=== PATIENT | male | born 1935 | race Caucasian/White ===

== ENCOUNTER 2025-02-09 06:00 | Inpatient (IN) | payer OTHER ==
[2025-02-09] MEDS ORDERED: NOREPINEPHRINE BITARTRATE 4 MG/4 ML ML IV ONE ×2 (06:25→09:36)
[2025-02-09] MEDS: NOREPINEPHRINE BITARTRATE 4,000 MCG in DEXTROSE 5%-WATER - 496 ML IV SCH (06:30)
[2025-02-09] MEDS: AMIODARONE IN DEXTROSE,ISO-OSM 360 MG/200 ML BAG IV SCH ×2 (06:34→16:37)
[2025-02-09 06:40] LABS: MCHC 31.4 g/dl (32.3-36.5); MEAN CELL VOLUME 92.5 fl (79.0-92.2); MEAN PLT VOLUME 11.4 fl (9.4-12.4); RDW 14.9 % (12.6-16.6)
[2025-02-09] MEDS ORDERED: AMIODARONE IN DEXTROSE,ISO-OSM 360 MG/200 ML BAG ONE (06:42)
[2025-02-09 06:47] LABS: BG HCT 40.0 % (35.4-49); VENOUS BASE EXCESS -5.3 mmol/L (-2-2); VENOUS O2 SATURATION 94.5 % (70-80); VENOUS PCO2 69.5 mmHg (38-52)
[2025-02-09 06:59] LABS: VENOUS PH 7.167 (7.310-7.410)
[2025-02-09 07:00] LABS: CO2 24 mmol/L (21-32); GLUCOSE,RANDOM 287 mg/dL (74-106)
[2025-02-09 07:05] LABS: SGOT/AST 64 U/L (15-37); SGPT/ALT 30 U/L (13-61)
[2025-02-09 07:06] LABS: CREATININE 3.3 mg/dL (0.55-1.3)
[2025-02-09 07:07] LABS: TOT PROT 7.0 g/dl (6.4-8.2)
[2025-02-09 07:08] LABS: ALK PHOS 98 U/L (45-117)
[2025-02-09 07:17] LABS: LACTIC ACID 10.6 mmol/L (0.4-2.0)
[2025-02-09 07:37] LABS: INR 1.2 (0.83-1.09); PROTHROMBIN TIME (PATIENT) 13.2 SEC (9.7-13.0)
[2025-02-09 07:39] LABS: ACTIVATED PTT 29.7 SECONDS (25.2-36.5)
[2025-02-09 08:40] VITALS: BMI 27.9
[2025-02-09] MEDS ORDERED: MIDAZOLAM IN 0.9 % SOD.CHLORID 1 MG/1 ML PLAST..BAG ONE (09:41)
[2025-02-09] MEDS ORDERED: levETIRAcetam 500 MG/5 ML INJECTION VIAL IVPB ONE (09:42)
[2025-02-09] MEDS: MIDAZOLAM IN 0.9 % SOD.CHLORID 100 MG/100 ML PLAST..BAG IVPB SCH (10:06)
[2025-02-09] MEDS: NOREPINEPHRINE 0.9 % NACL 8 MG/250 ML BAG IVPB SCH (10:07)
[2025-02-09] MEDS: levETIRAcetam 500 MG/5 ML INJECTION VIAL IVPB ONE (10:07)
[2025-02-09] MEDS: PANTOPRAZOLE SODIUM 40 MG VIAL IVPUSH SCH (10:20)
[2025-02-09] MEDS: HEPARIN NA (PORCINE) 5,000 UNITS/ML 1ML VIAL SQ SCH (10:36)
[2025-02-09 11:36] LABS: MCHC 31.9 g/dl (32.3-36.5); MEAN CELL VOLUME 90.8 fl (79.0-92.2); MEAN PLT VOLUME 11.4 fl (9.4-12.4); RDW 14.8 % (12.6-16.6)
[2025-02-09] MEDS: FENTANYL NS IVPB 500 MCG/100 ML BAG IVPB SCH (11:49)
[2025-02-09 12:24] LABS: LACTIC ACID 7.2 mmol/L (0.4-2.0)
[2025-02-09 12:54] LABS: ARTERIAL BLD GAS O2 SATURATION 99.5 % (95-98); ARTERIAL BLOOD GAS BASE EXCESS -0.2 mmol/L (-2-2); ARTERIAL BLOOD GAS PCO2 37.00 mmHg (35-45); ARTERIAL BLOOD GAS PO2 214.7 mmHg (80-100); BG HCT 37.0 % (35.4-49)
[2025-02-09 12:59] LABS: ALLENS TEST POSITIVE
[2025-02-09 13:00] LABS: VENT MODE A/C; VENT RATE 16
[2025-02-09 13:14] LABS: CO2 28.0 mmol/L (21-32); GLUCOSE,RANDOM 387.0 mg/dL (74-106)
[2025-02-09 13:17] LABS: CREATININE 3.4 mg/dL (0.55-1.3)
[2025-02-09] MEDS: PIPERACILLIN/TAZOB 2.25 GM 2.25 GM in DEXTROSE 5%-WATER - 50 ML IVPB SCH ×2 (14:31→21:00)
[2025-02-09] MEDS: INSULIN ASPART SLIDING SCALE (NOVOLOG) 1 VIAL SQ SCH (15:12)
[2025-02-09 17:03] LABS: CO2 27.0 mmol/L (21-32); GLUCOSE,RANDOM 346.0 mg/dL (74-106)
[2025-02-09 17:07] LABS: CREATININE 4.0 mg/dL (0.55-1.3)
[2025-02-09] MEDS: KCL 20 MEQ PREMIX BAG 20 MEQ/100 ML INFUS.BAG IVPB SCH (17:11)
[2025-02-09 17:17] LABS: LACTIC ACID 5.1 mmol/L (0.4-2.0)
[2025-02-09 17:18] LABS: MCHC 32.5 g/dl (32.3-36.5); MEAN CELL VOLUME 89.4 fl (79.0-92.2); MEAN PLT VOLUME 11.6 fl (9.4-12.4); RDW 14.8 % (12.6-16.6)
[2025-02-09] MEDS: PROPOFOL 1,000,000 MCG/100 ML VIAL IVPB SCH (21:45)
[2025-02-09] MEDS: CHLORHEXIDINE GLUCONATE 4% CLEANSER FOR DECOLONIZATION TP SCH (21:46)
[2025-02-09] MEDS: levETIRAcetam 500 MG/5 ML INJECTION VIAL IVPB SCH (22:00)
[2025-02-09] MEDS: MUPIROCIN 2% TOPICAL OINTMENT FOR DECOLONIZATION NS SCH (22:01)
[2025-02-09 23:17] LABS: MCHC 31.6 g/dl (32.3-36.5); MEAN CELL VOLUME 90.3 fl (79.0-92.2); MEAN PLT VOLUME 10.5 fl (9.4-12.4); RDW 15.0 % (12.6-16.6)
[2025-02-09 23:18] LABS: MCHC 32.5 g/dl (32.3-36.5); MEAN CELL VOLUME 89.2 fl (79.0-92.2); MEAN PLT VOLUME 10.8 fl (9.4-12.4); RDW 15.1 % (12.6-16.6)
[2025-02-09 23:45] LABS: CO2 29.0 mmol/L (21-32); GLUCOSE,RANDOM 318.0 mg/dL (74-106)
[2025-02-09 23:48] LABS: CREATININE 4.3 mg/dL (0.55-1.3)
[2025-02-10 05:09] LABS: ARTERIAL BLD GAS O2 SATURATION 99.4 % (95-98); ARTERIAL BLOOD GAS BASE EXCESS 3.1 mmol/L (-2-2); ARTERIAL BLOOD GAS PCO2 44.20 mmHg (35-45); ARTERIAL BLOOD GAS PO2 206.2 mmHg (80-100); BG HCT 39.0 % (35.4-49)
[2025-02-10 05:13] LABS: ALLENS TEST POSITIVE
[2025-02-10 05:14] LABS: VENT MODE A/C; VENT RATE 16
[2025-02-10 06:26] LABS: IMMATURE PLATELET FRACTION # 5.00 x10^3/uL; MCHC 32.1 g/dl (32.3-36.5); MEAN CELL VOLUME 90.6 fl (79.0-92.2); MEAN PLT VOLUME 11.3 fl (9.4-12.4); RDW 15.1 % (12.6-16.6)
[2025-02-10 06:28] LABS: IMMATURE PLATELET FRACTION # 4.80 x10^3/uL; MCHC 32.3 g/dl (32.3-36.5); MEAN CELL VOLUME 90.6 fl (79.0-92.2); MEAN PLT VOLUME 12.0 fl (9.4-12.4); RDW 15.2 % (12.6-16.6)
[2025-02-10 06:36] LABS: INR 1.47 (0.83-1.09); PROTHROMBIN TIME (PATIENT) 16.0 SEC (9.7-13.0)
[2025-02-10 06:39] LABS: ACTIVATED PTT 33.2 SECONDS (25.2-36.5)
[2025-02-10 06:44] LABS: CO2 31.0 mmol/L (21-32)
[2025-02-10 06:45] LABS: GLUCOSE,RANDOM 236.0 mg/dL (74-106)
[2025-02-10 06:47] LABS: SGOT/AST 216.0 U/L (15-37); SGPT/ALT 58.0 U/L (13-61)
[2025-02-10 06:48] LABS: CREATININE 4.6 mg/dL (0.55-1.3)
[2025-02-10 06:49] LABS: TOT PROT 5.9 g/dl (6.4-8.2)
[2025-02-10 06:50] LABS: ALK PHOS 81.0 U/L (45-117)
[2025-02-10 07:13] LABS: N-TERMINAL BNP 59286.6 pg/ml (5-450)
[2025-02-10] MEDS: AMIODARONE IN DEXTROSE,ISO-OSM 360 MG/200 ML BAG IV SCH (08:23)
[2025-02-10 18:40] VITALS: BP 75/59; PULSE 102; RESP 14; TEMP 99.7
== END 2025-02-10 18:18 | disposition expired | DRG 208 ==
LOC: JER 06:00 → JERBED 07:57 → JICU 09:39
PROVIDERS: ADMIT Internal Medicine Pulmonary Disease; ATTEND Internal Medicine Pulmonary Disease
PROC: 5A1945Z Respiratory Ventilation, 24-96 Consecutive Hours (ICD-10-PCS; principal; 2025-02-09)
PROC: 0BH17EZ Insertion of Endotracheal Airway into Trachea, Via Natural or Artificial Opening (ICD-10-PCS; 2025-02-09)
PROC: 5A12012 Performance of Cardiac Output, Single, Manual (ICD-10-PCS; 2025-02-09)
DX: J96.01 Acute respiratory failure with hypoxia (principal); A41.9 Sepsis, unspecified organism; J69.0 Pneumonitis due to inhalation of food and vomit; M96.A4 Flail chest associated with chest compression and cardiopulmonary resuscitation; N18.4 Chronic kidney disease, stage 4 (severe); N17.9 Acute kidney failure, unspecified; G93.1 Anoxic brain damage, not elsewhere classified; R04.2 Hemoptysis; I48.20 Chronic atrial fibrillation, unspecified; I47.20 Ventricular tachycardia, unspecified; I46.9 Cardiac arrest, cause unspecified; N40.0 Benign prostatic hyperplasia without lower urinary tract symptoms; I10 Essential (primary) hypertension; E78.5 Hyperlipidemia, unspecified; I12.9 Hypertensive chronic kidney disease with stage 1 through stage 4 chronic kidney disease, or unspecified chronic kidney disease; E11.22 Type 2 diabetes mellitus with diabetic chronic kidney disease; R56.9 Unspecified convulsions; Z95.0 Presence of cardiac pacemaker; I25.10 Atherosclerotic heart disease of native coronary artery without angina pectoris; S09.90XA Unspecified injury of head, initial encounter; W19.XXXA Unspecified fall, initial encounter; E11.40 Type 2 diabetes mellitus with diabetic neuropathy, unspecified; Y93.89 Activity, other specified; Y92.002 Bathroom of unspecified non-institutional (private) residence as the place of occurrence of the external cause; Y99.8 Other external cause status
CPT/HCPCS: 36415; 36600; 70450-TC; 71045-TC-FY; 71250-TC; 72125-TC; 80048; 80053; 82550; 82553; 82803; 82962; 83605; 83735; 83880; 84100; 84484; 85025; 85027; 85610; 85730; 86140; 87040; 93005; 93010; 94002; 99285-25